=== PATIENT | female | born 1985 | race Caucasian/White ===

== ENCOUNTER 2019-05-23 02:10 | Emergency (ER) | payer OTHER ==
[~2019-05-23] VITALS: Ht 157.5 cm; Wt 81.7 kg
[~2019-05-23 02:10] MED LIST: ALBU90OI INH; ATOM40; Amoxicillin875 MG PO; CEPH500 PO; CYCL10 PO; DOXY100 PO; HYDACE5 PO; IBUP600 PO; IBUP800 PO; NAPR500 PO; OXYACE5T PO; PENVK500 PO; PROM25 PO; RXCLIN PO; RXCYCL10 PO; RXHYDACE PO; RXTRAM50 PO; TRAACE; TRAM50 PO
[2019-05-23] MEDS ORDERED: Augmentin 875-1 EACH PO (06:04)
[2019-05-23] MEDS ORDERED: Percocet 5-3251 EACH PO (06:04)
[2019-05-23] MEDS ORDERED: CRUTCH4 XX (07:52)
== END 2019-05-23 07:56 | disposition home or self-care (01) ==
LOC: ER 02:10
DX: S71.151A Open bite, right thigh, initial encounter (principal); S81.851A Open bite, right lower leg, initial encounter; W54.0XXA Bitten by dog, initial encounter; F17.200 Nicotine dependence, unspecified, uncomplicated
CPT/HCPCS: 99283

== ENCOUNTER 2020-06-20 22:22 | Emergency (ER) | payer OTHER ==
[~2020-06-20] VITALS: Ht 157.5 cm; Wt 83.9 kg
[~2020-06-20 22:22] MED LIST changes: +Augmentin 875-1 EACH PO; +CRUTCH4 XX; +Percocet 5-3251 EACH PO
[2020-06-21] MEDS ORDERED: CEPH500 PO (00:35)
== END 2020-06-21 00:53 | disposition home or self-care (01) ==
LOC: ER 22:22
DX: S51.841A Puncture wound with foreign body of right forearm, initial encounter (principal); F17.210 Nicotine dependence, cigarettes, uncomplicated; Z23 Encounter for immunization; W34.010A Accidental discharge of airgun, initial encounter
CPT/HCPCS: 73110; 90471; 90714; 99283-25; A9270; A9270-GY

== ENCOUNTER 2021-03-11 17:01 | Emergency (ER) | payer OTHER ==
[~2021-03-11] VITALS: Ht 157.5 cm; Wt 86.2 kg
== END 2021-03-11 19:04 | disposition home or self-care (01) ==
LOC: ER 17:01
DX: R60.0 Localized edema (principal)
CPT/HCPCS: 93970; 99284-25

== ENCOUNTER 2021-05-20 14:20 | Emergency (ER) | payer OTHER ==
[~2021-05-20] VITALS: Ht 160 cm; Wt 86.2 kg
[2021-05-20 15:33] LABS: BASOPHILS ABSOLUTE AUTO 0.08 K/mm3 (0.00-0.23); BASOPHILS PERCENT AUTO 0 % (0-2); EOSINOPHILS ABSOLUTE AUTO 0.33 K/mm3 (0.00-0.68); EOSINOPHILS PERCENT AUTO 2 % (0-6); Hematocrit 44.7 % (33.0-51.0); Hemoglobin 14.5 g/dL (11.5-16.0); IMMATURE GRAN PERCENT AUTO 1 % (0-1); LYMPHOCYTES ABSOLUTE AUTO 2.69 K/mm3 (0.84-5.20); LYMPHOCYTES PERCENT AUTO 14 % (21-46); MONOCYTES ABSOLUTE AUTO 1.77 K/mm3 (0.16-1.47); MONOCYTES PERCENT AUTO 9 % (4-13); Mean Corpuscular HGB 29.1 pg (26.0-34.0); Mean Corpuscular HGB Conc 32.4 g/dL (31.5-36.5); Mean Corpuscular Volume 90 fL (80-100); Mean Platelet Volume 9.5 fL (9.1-12.4); NEUTROPHILS ABSOLUTE AUTO 14.05 K/mm3 (1.96-9.15); NEUTROPHILS PERCENT AUTO 74 % (41-73); Platelet Count 528 K/mm3 (150-400); RDW Coefficient Variation 12.9 % (11.7-14.2); RDW Standard Deviation 42.5 fL (35.1-46.3); Red Blood Cell Count 4.99 M/mm3 (3.80-5.20); White Blood Cell Count 19.02 K/mm3 (4.00-11.30)
[2021-05-20 15:34] LABS: Source, Urine Clean Catch
[2021-05-20 15:38] LABS: Appearance, Urine Hazy (Clear); Bilirubin, Urine Neg (Neg); Blood, Urine 3+ (Neg); Color, Urine Yellow (P-Yellow); Glucose Qualitative, Urine Neg (Neg); Ketones, Urine Neg (Neg); Leukocyte Esterase, Urine 2+ (Neg); Nitrite, Urine Pos (Neg); Protein, Urine 2+ (Neg); Specific Gravity, Urine 1.015 (1.003-1.022); Urobilinogen, Urine NORM (Normal)
[2021-05-20 15:54] LABS: Alanine Aminotransfer (ALT/SGP 51 U/L (12-78); Albumin, Blood 3.3 g/dL (3.4-5.0); Albumin/Globulin Ratio 0.7 (0.8-1.8); Alk Phos 118 U/L (50-136); Anion Gap 6 mmol/L (6-16); Aspartate Aminotrans (AST/SGOT 31 U/L (12-37); Bilirubin, Total 0.7 mg/dL (0.1-1.0); Blood Urea Nitrogen 8 mg/dL (8-24); CO2, Blood 26 mmol/L (21-32); Chloride, Blood 103 mmol/L (98-108); Globulin, Blood 4.8 g/dL (2.2-4.0); Glomerular Filtration Rate >60 (60-); Glucose, Blood 96 mg/dL (70-99); Potassium, Blood 4.1 mmol/L (3.5-5.5); Sodium, Blood 135 mmol/L (136-145); Total Protein, Blood 8.1 g/dL (6.4-8.2)
[2021-05-20 16:54] LABS: Bacteria Many /hpf; Squamous Epithelial Cells Mod /hpf (Few); White Blood Cells, Urine 25-50 /hpf (0-5)
[2021-05-20 16:55] LABS: Trichomonas Few /hpf
[2021-05-20] MEDS ORDERED: CEFD300 PO (17:33)
== END 2021-05-20 18:14 | disposition home or self-care (01) ==
LOC: ER 14:20
PROVIDERS: Physician Assistant
DX: N20.0 Calculus of kidney (principal)
CPT/HCPCS: 36415; 74176; 80053; 81001; 81025; 85025; 87077; 87086; 87186; 96361; 96365; 96375; 99284-25; J0696; J1885; J2405; J7030

== ENCOUNTER 2022-01-25 21:47 | Emergency (ER) | payer SELFPAY ==
[~2022-01-25] VITALS: Ht 167.6 cm; Wt 95.2 kg
[~2022-01-25 21:47] MED LIST changes: +CEFD300 PO
== END 2022-01-25 23:20 | disposition home or self-care (01) ==
LOC: ER 21:47
DX: S01.531A Puncture wound without foreign body of lip, initial encounter (principal); F17.210 Nicotine dependence, cigarettes, uncomplicated; X58.XXXA Exposure to other specified factors, initial encounter
CPT/HCPCS: 12011; 90471; 90714; 99283-25

== ENCOUNTER 2022-02-26 10:41 | Emergency (ER) | payer SELFPAY ==
[~2022-02-26] VITALS: Ht 157.5 cm; Wt 86.2 kg
[2022-02-26] MEDS ORDERED: Cleocin HCl150 MG PO (11:13)
[2022-02-26] MEDS ORDERED: IBUP600 PO (11:13)
[2022-02-26] MEDS ORDERED: Acetaminophen650 M1 PO (11:14)
== END 2022-02-26 12:35 | disposition home or self-care (01) ==
LOC: ER 10:41
DX: K04.7 Periapical abscess without sinus (principal); F17.210 Nicotine dependence, cigarettes, uncomplicated; Z79.899 Other long term (current) drug therapy
CPT/HCPCS: 10060; 99283-25; A9270